=== PATIENT | female | born 1995 | race Asian ===

== ENCOUNTER 2017-11-04 21:14 | Inpatient (IN) | payer BC ==
[~2017-11-04] VITALS: Ht 160 cm; Wt 54.9 kg
[2017-11-04 22:09] LABS: UA SPECIFIC GRAVITY >=1.030 (1.005-1.035); microscopic required? YES; urine erythrocyte NEGATIVE (NEGATIVE)
[2017-11-04 22:16] LABS: CALCIUM 7.8 mg/dL (8.5-10.1); CARBON DIOXIDE 26.2 mmol/L (21-32); CHLORIDE SERUM 107 mmol/L (98-107); CREATININE SERUM 0.6 mg/dL (0.6-1.0); GFR1 > 60 mL/min; GLUCOSE SERUM 141 mg/dL (74-106); POTASSIUM SERUM 3.4 mmol/L (3.5-5.1); SODIUM SERUM 139 mmol/L (136-145)
[2017-11-04 22:20] LABS: ALKALINE PHOSPHATASE 42 U/L (46-116); ALT/SGPT 14 U/L (14-59); AST/SGOT 8 U/L (15-37); BILIRUBIN TOTAL 0.3 mg/dL (0.20-1.00); TOTAL PROTEIN, SERUM 6.4 g/dL (6.4-8.2)
[2017-11-04 22:21] LABS: ALBUMIN 3.1 g/dL (3.4-5.0)
[2017-11-04 22:47] LABS: BASOPHIL % 0.2 % (0-2); PLATELET COUNT 389 x10^3mcL (130-400)
[2017-11-04 22:52] LABS: RED CELL DISTRIBUTION WIDTH 23.7 % (11.5-14.5)
[2017-11-04 22:54] LABS: rbc morphology (normal/abnorm) ABNORMAL (NORMAL)
[2017-11-05 00:37] LABS: MAGNESIUM 1.9 mg/dL (1.8-2.4); PHOSPHOROUS 3.8 mg/dL (2.5-4.9)
[2017-11-05 00:40] LABS: T3 TOTAL 1.05 ng/mL
[2017-11-05 00:42] LABS: CHOLESTEROL/HDL RATIO 2.7
[2017-11-05 00:44] LABS: FREE T4 1.12 ng/dL (0.76-1.46); FREE THYROXINE INDEX 2.8 ug/dL (1.4-4.5); T4(THYROXINE) 8.7 ug/dL (4.7-13.3)
[2017-11-05 01:44] VITALS: BP 106/67
[2017-11-05 03:22] VITALS: BP 100/67
[2017-11-05 05:30] VITALS: BP 102/60
[2017-11-05 05:35] LABS: BASOPHIL % 0.1 % (0-2); PLATELET COUNT 289 x10^3mcL (130-400)
[2017-11-05 05:36] LABS: RED CELL DISTRIBUTION WIDTH 36.5 % (11.5-14.5)
[2017-11-05 05:43] LABS: CALCIUM 7.9 mg/dL (8.5-10.1); CARBON DIOXIDE 21.4 mmol/L (21-32); CHLORIDE SERUM 111 mmol/L (98-107); CREATININE SERUM 0.6 mg/dL (0.6-1.0); GFR1 > 60 mL/min; GLUCOSE SERUM 109 mg/dL (74-106); PHOSPHOROUS 4.1 mg/dL (2.5-4.9); SODIUM SERUM 144 mmol/L (136-145)
[2017-11-05 07:55] VITALS: BP 105/62
[2017-11-05 08:30] VITALS: Ht 160 cm; Wt 54.9 kg
[2017-11-05 10:28] LABS: AMPHETAMINE QUAL UR NONE DETECTED (See below)
[2017-11-05 11:06] VITALS: BP 104/66
== END 2017-11-05 11:50 | disposition left against medical advice (07) | DRG 760 ==
LOC: ED 21:14 → IC 23:42
PROVIDERS: Emergency Medicine; Internal Medicine
PROC: 30233N1 Transfusion of Nonautologous Red Blood Cells into Peripheral Vein, Percutaneous Approach (ICD-10-PCS; principal; 2017-11-05)
DX: N93.9 Abnormal uterine and vaginal bleeding, unspecified (principal); N17.0 Acute kidney failure with tubular necrosis; D62 Acute posthemorrhagic anemia; R65.10 Systemic inflammatory response syndrome (SIRS) of non-infectious origin without acute organ dysfunction; E44.0 Moderate protein-calorie malnutrition; G90.8 Other disorders of autonomic nervous system; E83.51 Hypocalcemia; E87.6 Hypokalemia; Z53.21 Procedure and treatment not carried out due to patient leaving prior to being seen by health care provider; W18.30XA Fall on same level, unspecified, initial encounter; Y93.89 Activity, other specified; Y92.89 Other specified places as the place of occurrence of the external cause; Y99.8 Other external cause status; Z68.24 Body mass index [BMI] 24.0-24.9, adult
CPT/HCPCS: 82962; 84439; J3490; J7030; J7040; P9016; Q0092